=== PATIENT | female | born 1940 | race Caucasian/White ===

== ENCOUNTER 2023-12-03 15:49 | Emergency (ER) | payer MEDICARE ==
[2023-12-03 16:03] VITALS: BP 158/68; PULSE 82
[2023-12-03] MEDS: Diphtheria,Pertussis(Acell),Tetanus Vaccine 0.5 ML Syringe IM ONE (16:59)
[2023-12-03] MEDS: Sulfamethoxazole/Trimethoprim 800-160 MG Tab PO ONE (17:29)
[2023-12-03] MEDS: Take Home: Sulfamethoxazole/Trimethoprim 800-160 MG Tab, 6 Tab Pack PO ONE (17:29)
[2023-12-03] MEDS ORDERED: Sulfamethoxazole/Trimethoprim 800-160 MG Tab PO SCH (18:00)
== END 2023-12-03 17:25 | disposition home or self-care (01) ==
LOC: LL.ED 15:49
DX: S60.552A Superficial foreign body of left hand, initial encounter (principal); Z88.7 Allergy status to serum and vaccine; Z91.041 Radiographic dye allergy status; Z88.2 Allergy status to sulfonamides; I10 Essential (primary) hypertension; Z86.16 Personal history of COVID-19; Z23 Encounter for immunization; Z90.710 Acquired absence of both cervix and uterus; W45.8XXA Other foreign body or object entering through skin, initial encounter; Y92.22 Religious institution as the place of occurrence of the external cause; Y93.01 Activity, walking, marching and hiking
CPT/HCPCS: 90471; 90715; 99283-25; A9270-GY